=== PATIENT | female | born 1950 | race Caucasian/White ===

== ENCOUNTER → 2016-04-24 | Outpatient (CLI) | payer MEDICARE, OTHER ==
[~2016-04-24] VITALS: Ht 167.6 cm; Wt 90.3 kg
[~2016-04-24] MED LIST: ABILIFY5 MG PO; ANTIVERT 12.512.5 MG PO; CALMOSEPTINE OI71 GM TP; CELEXA40 MG PO; CRESTOR10 MG PO; FOSAMAX70 MG PO; LASIX20 MG PO; LORTAB 10-3251 EACH PO; NEURONTIN 300300 MG PO; PRO AIR INH; PROAIR HFA8.5 GM INH; SINGULAIR10 MG PO; SYNTHROID50 MCG PO; ULTRAM50 MG PO; VASOTEC20 MG PO; VISTARIL25 MG PO; XANAX1 MG PO
[2016-04-24 13:41] LABS: HEMOGLOBIN 13.4 gm/dl (12.3-15.3); RED BLOOD COUNT 4.34 M/UL (4.00-5.10); WHITE BLOOD COUNT 7.5 K/UL (4.5-11.0)
== END ==
LOC: OPSV2 12:30
PROVIDERS: Orthopaedic Surgery
DX: Z01.812 Encounter for preprocedural laboratory examination (principal); Z01.810 Encounter for preprocedural cardiovascular examination; M16.12 Unilateral primary osteoarthritis, left hip; Z88.5 Allergy status to narcotic agent; Z88.0 Allergy status to penicillin
CPT/HCPCS: 36415; 80048; 81001; 85027; 87081; 93005

== ENCOUNTER → 2016-05-03 | Outpatient (CLI) | payer MEDICARE, OTHER | LOC: LAB 13:50 | DX: Z01.812 Encounter for preprocedural laboratory examination (principal) | CPT/HCPCS: 36415; 80051; 82565; 84520; 86850; 86900; 86901 ==

== ENCOUNTER → 2016-05-04 | Day surgery (SDC) | payer MEDICARE, OTHER ==
[~2016-05-04] VITALS: Ht 167.6 cm; Wt 90.3 kg
[2016-05-04 10:13] LABS: HEMOGLOBIN 14.5 gm/dl (12.3-15.3); RED BLOOD COUNT 4.67 M/UL (4.00-5.10); WHITE BLOOD COUNT 6.7 K/UL (4.5-11.0)
== END | disposition home or self-care (01) ==
LOC: OR 07:19
PROVIDERS: Orthopaedic Surgery
DX: M16.52 Unilateral post-traumatic osteoarthritis, left hip (principal); Z53.09 Procedure and treatment not carried out because of other contraindication; N89.9 Noninflammatory disorder of vagina, unspecified; I10 Essential (primary) hypertension; E03.9 Hypothyroidism, unspecified; M79.7 Fibromyalgia; F32.9 Major depressive disorder, single episode, unspecified; Z79.891 Long term (current) use of opiate analgesic; Z79.52 Long term (current) use of systemic steroids; Z79.899 Other long term (current) drug therapy; Z88.5 Allergy status to narcotic agent; Z88.0 Allergy status to penicillin
CPT/HCPCS: 36415; 73502; 81001; 85025; J3370; J7050; J7120

== ENCOUNTER 2016-05-11 05:43 | Inpatient (IN) | payer MEDICARE, OTHER ==
[~2016-05-11] VITALS: Ht 167.6 cm; Wt 90.3 kg
[2016-05-12 07:47] LABS: HEMOGLOBIN 10.1 gm/dl (12.3-15.3); RED BLOOD COUNT 3.21 M/UL (4.00-5.10); WHITE BLOOD COUNT 5.9 K/UL (4.5-11.0)
[2016-05-13 06:16] LABS: HEMOGLOBIN 8.8 gm/dl (12.3-15.3); RED BLOOD COUNT 2.87 M/UL (4.00-5.10); WHITE BLOOD COUNT 6.8 K/UL (4.5-11.0)
[2016-05-14 06:42] LABS: HEMOGLOBIN 8.7 gm/dl (12.3-15.3); RED BLOOD COUNT 2.84 M/UL (4.00-5.10)
[2016-05-14 06:46] LABS: WHITE BLOOD COUNT 8.7 K/UL (4.5-11.0)
[2016-05-15 05:53] LABS: HEMOGLOBIN 8.2 gm/dl (12.3-15.3); RED BLOOD COUNT 2.69 M/UL (4.00-5.10)
[2016-05-15 05:55] LABS: WHITE BLOOD COUNT 6.4 K/UL (4.5-11.0)
== END 2016-05-15 15:23 | disposition home or self-care (01) | DRG 470 ==
LOC: ZOBSOF 05:43 → OR 08:15 → M/S 14:52 → EDSTATUS 18:30 → OR 18:30 → M/S 05-15 15:23
PROVIDERS: Internal Medicine Infectious Disease; Internal Medicine Nephrology; ADMIT Orthopaedic Surgery
PROC: 0SPB04Z Removal of Internal Fixation Device from Left Hip Joint, Open Approach (ICD-10-PCS; principal; 2016-05-11 08:15)
PROC: 0SRB01A Replacement of Left Hip Joint with Metal Synthetic Substitute, Uncemented, Open Approach (ICD-10-PCS; 2016-05-11 08:15)
DX: M16.12 Unilateral primary osteoarthritis, left hip (principal); N17.9 Acute kidney failure, unspecified; E87.2 Acidosis; E87.1 Hypo-osmolality and hyponatremia; D62 Acute posthemorrhagic anemia; E03.9 Hypothyroidism, unspecified; M79.7 Fibromyalgia; F32.9 Major depressive disorder, single episode, unspecified; Z90.49 Acquired absence of other specified parts of digestive tract; Z90.710 Acquired absence of both cervix and uterus; Z98.51 Tubal ligation status; Z79.899 Other long term (current) drug therapy; Z88.5 Allergy status to narcotic agent; Z88.0 Allergy status to penicillin; I12.9 Hypertensive chronic kidney disease with stage 1 through stage 4 chronic kidney disease, or unspecified chronic kidney disease; N18.3 Chronic kidney disease, stage 3 (moderate); E78.5 Hyperlipidemia, unspecified; K76.0 Fatty (change of) liver, not elsewhere classified; K21.9 Gastro-esophageal reflux disease without esophagitis; I95.9 Hypotension, unspecified; E86.1 Hypovolemia
CPT/HCPCS: 36415; 72170; 80048; 80053; 81001; 82043; 82570; 82800; 85025; 85027; 86850; 86900; 86901; 93971; 94640; 94664; 94760; 97110; 97116; 97530; 97535; C1776; J1885; J2250; J2270; J2765; J2795; J3010; J3370; J7030; J7050; J7070; J7120